=== PATIENT | male | born 1985 | race Caucasian/White ===

== ENCOUNTER 2017-04-14 18:49 | Inpatient (IN) | payer BC, MEDICAID ==
[~2017-04-14] VITALS: Ht 167.6 cm; Wt 83.9 kg
--- NOTE | 2017-04-14 18:51 | NUR ---
Arrived via BLS ambulance with compliant of ETOH withdrawal. Patient to ER bed to [facility] for evaluation. Side rails up. Report given to Ryan ARCHULETA.
[2017-04-14 18:56] VITALS: BP_SYST 180
--- NOTE | 2017-04-14 19:00 | NUR ---
Patient brought to ED via BLS a/o x 4 with c/o of alcohol withdrawal symptoms. Patient reports consuming vodka, unknown amount. History of alcohol abuse. Patient reports difficulty sleeping x 1 day. Denies pain at this time. EMS reports patient presents with elevated HR and BP. Upon assessment. BP 164/102 and HR 117. Denies N/V. Denies fever. Will continue to monitor.
--- NOTE | 2017-04-14 19:05 | NUR ---
Patient denies any thoughts of self harm. Reports not taking medication for anxiety and hypertension.
[2017-04-14] MEDS ORDERED: BANANA BAG 1 EA, MVI 10 ML, THIAMINE HCL 100 MG, FOLIC ACID 1 MG, MAGNESIUM SULFATE 1 G... IV SCH ×5 (19:15)
--- NOTE | 2017-04-14 19:30 | NUR ---
20 gauge angiocath placed to left AC. Use of asceptic technique. Opsite placed over site. Blood return noted. Flushed with 10 cc of normal saline. No evidence of infiltration noted. Patient tolerated well.
[2017-04-14 19:37] LABS: BILIRUBIN,URINE NEGATIVE (NEGATIVE); BLOOD, URINE 2+ (NEGATIVE); CLARITY/URINE CLEAR (CLEAR); COLOR,URINE YELLOW (YELLOW); GLUCOSE,URINE NEGATIVE (NEGATIVE); KETONES,URINE NEGATIVE (NEGATIVE); LEUKOCYTE ESTERASE ,URINE NEGATIVE (NEGATIVE); NITRITE, URINE NEGATIVE (NEGATIVE); PROTEIN URINE TRACE (NEGATIVE); UROBILINOGEN,URINE 0.2 (0.2-1.0)
--- NOTE | 2017-04-14 19:40 | NUR ---
ED MD Osea at bedside for medical evaluation.
[2017-04-14 19:46] LABS: BACTERIA,URINE RARE /HPF (None Seen); RBC,URINE 0-3 /HPF (0-3); WBC,URINE 0-3 /HPF (0-3)
[2017-04-14 19:48] LABS: BARBITURATE, URINE NEGATIVE (NEG <=200); BENZODIAZEPINE, URINE NEGATIVE (NEG <=150); CANNABINOID, URINE NEGATIVE (NEG <=50); COCAINE, URINE NEGATIVE (NEG <=150); METHAMPHETAMINES SCREEN,URINE NEGATIVE (NEG <=500); OPIATE, URINE NEGATIVE (NEG <=100); PHENCYCLIDINE SCREEN,URINE NEGATIVE (NEG <=25); UR TRICYCLIC ANTIDEPRESSANTS NEGATIVE (NEG <=300); URINE AMPHETAMINE NEGATIVE (NEG <=500); URINE METHADONE NEGATIVE (NEG <=200); URINE OXYCODONE SCREEN NEGATIVE (NEG <=100); URINE PROPOXYPHENE SCREEN NEGATIVE (NEG <=300)
[2017-04-14 19:52] LABS: BASOPHILS % (AUTO) 0.4 % (0.0-2.0); EOSINOPHILS % (AUTO) 0.5 % (0.0-4.0); HEMATOCRIT 44.5 % (36-54); HEMOGLOBIN 14.7 g/dL (14.0-18.0); LYMPHOCYTES # (AUTO) 3.1 K/uL (1.0-5.5); LYMPHOCYTES % (AUTO) 45.1 % (20.5-51.5); MEAN CORPUSCULAR HEMOGLOBIN 29 pg (27-31); MEAN CORPUSCULAR HGB CONC 33 % (32-36); MEAN CORPUSCULAR VOLUME 89 fL (79.0-98.0); MONOCYTES # (AUTO) 0.4 K/uL (0.0-1.0); MONOCYTES % (AUTO) 5.7 % (1.7-9.3); NEUTROPHILS # (AUTO) 3.3 K/uL (1.8-7.7); NEUTROPHILS % (AUTO) 48.3 % (40.0-70.0); PLATELET COUNT (AUTO) 257 K/uL (130-430); RED BLOOD CELL COUNT(AUTO) 5.01 MIL/uL (4.2-6.2); RED CELL DISTRIBUTION WIDTH 12.7 % (9.0-15.0); WHITE BLOOD COUNT (AUTO) 6.8 K/uL (4.8-10.8)
[2017-04-14 20:00] LABS: ANION GAP 11 (5-15); CALCIUM 8.2 mg/dL (8.4-11.0); CHLORIDE 103 mmol/L (98-107); CREATININE 0.83 mg/dL (0.55-1.30); GLUCOSE 109 mg/dL (70-99); POTASSIUM 4.3 mmol/L (3.5-5.1); SODIUM SERUM 142 mmol/L (136-145); UREA NITROGEN, BLOOD 13 mg/dL (8-21)
[2017-04-14 20:02] LABS: GFR AFRICAN AMERICAN 139 mL/min (>90); INR 0.9 (0.80-1.20); PROTHROMBIN TIME 10.3 SECS (9.5-12.5)
[2017-04-14] MEDS ORDERED: THIAMINE HCL 100 MG/ML VIAL ONE (20:03)
--- NOTE | 2017-04-14 20:03 | NUR ---
Medicated per MD orders. IVF infusing with no s/s of infiltration at this time. Will continue to monitor.
[2017-04-14 20:04] LABS: ALANINE AMINOTRANSFERASE 111 U/L (12-78); ALBUMIN 4.3 g/dL (3.4-4.8); ASPARTATE AMINOTRANSFERASE 92 U/L (10-37); CREATINE KINASE, TOTAL 300 U/L (39-308); SALICYLATE 2 mg/dL (3-30); TOTAL BILIRUBIN 0.4 mg/dL (0.0-1.0); TOTAL PROTEIN, SERUM 7.9 g/dL (6.4-8.3)
[2017-04-14] MEDS ORDERED: MVI 10 ML VIAL IV ONE (20:05)
[2017-04-14] MEDS ORDERED: FOLIC ACID 5 MG/ML VIAL IV ONE (20:05)
[2017-04-14] MEDS ORDERED: MAGNESIUM SULFATE 1 GM/2 ML VIAL ONE (20:06)
[2017-04-14 20:13] LABS: ACETAMINOPHEN < 1 ug/mL (1-30)
[2017-04-14 20:29] LABS: ALCOHOL, BLOOD 343 mg/dL (<10)
--- NOTE | 2017-04-14 21:04 | NUR ---
Medication reconciliation - patient states "no home meds"
--- NOTE | 2017-04-14 21:25 | NUR ---
Contacted ICU. Spoke with Sonia ARCHULETA. Reports unable to take patient due to inadequate staffing. To call on-call nurse. Will call back for bed availability. Patient requires 1-to-1.
--- NOTE | 2017-04-14 22:00 | NUR ---
Patient resting quietly. No acute distress noted. Vital signs within normal range.
--- NOTE | 2017-04-14 22:00 | NUR ---
RECEIVE PT FROM ER Received Pt from [facility]AL HYGIENIST with a diagnosis of alcohol intoxication. Pt is awake and alert. IV 20g on left ac, no infiltration noted. Pt denies pain. Safety precautions observed, will continue to monitor Pt.
--- NOTE | 2017-04-14 22:55 | NUR ---
ADMISSION Pt admitted from ER via gurney accompanied by ACLS ER staff to room ICU 1. Pt alert/ oriented to self, time and place. Pt emotional and pacing in the room. IV site present left forearm 20ga. Belongings @ bedside. Pt denies intent to harm self. Pt oriented to room and surroundings. To call if he needs assistance.
--- NOTE | 2017-04-14 22:55 | NUR ---
Patient will be admitted to care of Dr. Ryan Admitted to intensive care unit. Will go to bed 1. Belongings list completed. Summary report printed. Report will be given at bedside. Transfer to ICU via ACLS protocol. Licensed nurse present. IV present no signs or symptoms of infiltration.
[2017-04-14 23:00] VITALS: BP_SYST 146
--- NOTE | 2017-04-14 23:10 | NUR ---
15 MINUTE CHECK Pt settled into room, Librium PO and Ativan IV given per MD orders. Pt resting in bed.
[2017-04-14] MEDS ORDERED: ACETAMINOPHEN 325 MG TABLET PO PRN (23:15)
--- NOTE | 2017-04-14 23:25 | NUR ---
PATIENT RESTING: Patient resting quietly. No acute distress noted.
[2017-04-14] MEDS ORDERED: chlordiazePOXIDE HCL 25 MG CAPSULE PO ONE (23:30)
--- NOTE | 2017-04-14 23:40 | NUR ---
PATIENT RESTING: Patient resting quietly. No acute distress noted. Patient is able to reposition self in bed and is encouraged to request assistance when needed.
--- NOTE | 2017-04-14 23:55 | NUR ---
PATIENT RESTING: Patient resting quietly. No acute distress noted.
[2017-04-15] VITALS (20 sets, daily range): BP systolic 129–183
[2017-04-15] MEDS: POTASSIUM CHLORIDE 10 MEQ in D5/0.45 NS 1,000 ML IV SCH ×3 (00:07→21:32)
--- NOTE | 2017-04-15 00:10 | NUR ---
PATIENT RESTING: Patient resting quietly. No acute distress noted.
--- NOTE | 2017-04-15 00:25 | NUR ---
PATIENT RESTING: Patient resting quietly. No acute distress noted.
[2017-04-15] MEDS: LORazepam 2 MG/ML VIAL IVP PRN ×4 (00:28→14:49)
--- NOTE | 2017-04-15 00:40 | NUR ---
PATIENT RESTING: Patient resting quietly. No acute distress noted.
--- NOTE | 2017-04-15 00:55 | NUR ---
PATIENT RESTING: Patient resting quietly. No acute distress noted.
--- NOTE | 2017-04-15 01:10 | NUR ---
PATIENT RESTING: Patient resting quietly. No acute distress noted.
--- NOTE | 2017-04-15 03:17 | NUR ---
FOR CONSULTATION, CALLED [facility] AND SPOKE WITH SOFI.
--- NOTE | 2017-04-15 06:00 | NUR ---
ASSESSMENT Pt alert/oriented to self, time and place. Pt is very cooperative, and interactive with staff. Denies thoughts of self harm. Denies suicide plan.
[2017-04-15 06:43] LABS: BASOPHILS % (AUTO) 0.4 % (0.0-2.0); EOSINOPHILS # (AUTO) 0.1 K/uL (0.0-0.4); EOSINOPHILS % (AUTO) 1.1 % (0.0-4.0); HEMATOCRIT 37.6 % (36-54); LYMPHOCYTES # (AUTO) 4.7 K/uL (1.0-5.5); MEAN CORPUSCULAR HEMOGLOBIN 31 pg (27-31); MEAN CORPUSCULAR HGB CONC 35 % (32-36); MEAN CORPUSCULAR VOLUME 89 fL (79.0-98.0); MONOCYTES # (AUTO) 0.4 K/uL (0.0-1.0); MONOCYTES % (AUTO) 5.7 % (1.7-9.3); NEUTROPHILS # (AUTO) 2.6 K/uL (1.8-7.7); NEUTROPHILS % (AUTO) 32.8 % (40.0-70.0); PLATELET COUNT (AUTO) 193 K/uL (130-430); RED BLOOD CELL COUNT(AUTO) 4.23 MIL/uL (4.2-6.2); WHITE BLOOD COUNT (AUTO) 7.8 K/uL (4.8-10.8)
[2017-04-15 06:59] LABS: ALBUMIN 3.7 g/dL (3.4-4.8); CALCIUM 7.5 mg/dL (8.4-11.0); CREATININE 0.79 mg/dL (0.55-1.30); POTASSIUM 3.3 mmol/L (3.5-5.1); THYROID STIMULATING HORMONE 2.19 uIu/mL (0.34-4.82); TOTAL BILIRUBIN 0.5 mg/dL (0.0-1.0); TOTAL PROTEIN, SERUM 6.9 g/dL (6.4-8.3)
--- NOTE | 2017-04-15 07:30 | NUR ---
ASSUMPTION OF CARE RECEIVED REPORT FROM ELBA ARCHULETA. PT IN BED SLEEPING. VITALS STABLE, O2 SAT 99% ON ROOM AIR, SINUS TACHYCARDIA ON MONITOR. NO SIGNS DISTRESS NOTED. IVF INFUSING THROUGH 20G LEFT FOREARM IV AT 100ML/HR, NO SIGNS INFILTRATION NOTED. BED IN LOWEST POSITION, CALL LIGHT IN REACH. WILL CONTINUE TO MONITOR.
--- NOTE | 2017-04-15 07:45 | NUR ---
OBSERVATION PT RESTING QUIETLY IN BED. VITALS STABLE. NO SIGNS DISTRESS NOTED. PT REPOSITIONS SELF IN BED. PT DENIES PAIN/AGITATION AT THIS TIME. WILL CONTINUE TO MONITOR.
--- NOTE | 2017-04-15 08:00 | NUR ---
HERE DR WHITING HERE TO EVALUATE PT. ORDERS RECEIVED.
--- NOTE | 2017-04-15 08:00 | NUR ---
OBSERVATION PT RESTING QUIETLY IN BED. VITALS STABLE. NO SIGNS DISTRESS NOTED. PT REPOSITIONS SELF IN BED. WILL CONTINUE TO MONITOR.
[2017-04-15] MEDS: chlordiazePOXIDE HCL 25 MG CAPSULE PO SCH ×3 (08:09→21:27)
[2017-04-15] MEDS: FAMOTIDINE 20 MG TABLET PO SCH (08:09)
--- NOTE | 2017-04-15 08:15 | NUR ---
OBSERVATION PT IN BED USING URINAL. VITALS STABLE. NO SIGNS DISTRESS NOTED. PT DENIES PAIN/AGITATION AT THIS TIME. WILL CONTINUE TO MONITOR.
--- NOTE | 2017-04-15 08:30 | NUR ---
OBSERVATION PT RESTING QUIETLY IN BED. VITALS STABLE. NO SIGNS DISTRESS NOTED. PT REPOSITIONS SELF IN BED. WILL CONTINUE TO MONITOR.
--- NOTE | 2017-04-15 08:45 | NUR ---
OBSERVATION PT RESTING QUIETLY IN BED. VITALS STABLE. NO SIGNS DISTRESS NOTED. PT DENIES PAIN/AGITATION AT THIS TIME. WILL CONTINUE TO MONITOR.
[2017-04-15] MEDS ORDERED: BANANA BAG 1 EA, MVI 10 ML, THIAMINE HCL 100 MG, FOLIC ACID 1 MG, MAGNESIUM SULFATE 1 G... IV SCH ×5 (09:00)
--- NOTE | 2017-04-15 09:05 | NUR ---
IV PLACEMENT # 20 gauge angiocath placed to RIGHT WRIST. Use of asceptic technique. Opsite placed over site. Blood return noted. Flushed with 10 cc of normal saline. No evidence of infiltration noted. Patient tolerated WITHOUT DIFFICULTY.
--- NOTE | 2017-04-15 09:15 | NUR ---
OBSERVATION PT RESTING QUIETLY IN BED. VITALS STABLE. NO SIGNS DISTRESS NOTED. WILL CONTINUE TO MONITOR.
[2017-04-15] MEDS: POTASSIUM CHLORIDE 10 MEQ TAB.PRT.SR PO SCH ×2 (09:41→14:42)
--- NOTE | 2017-04-15 09:45 | NUR ---
OBSERVATION PT RESTING QUIETLY IN BED. VITALS STABLE. NO SIGNS DISTRESS NOTED. PT REPOSITIONS SELF IN BED. PT DENIES PAIN/AGITATION AT THIS TIME. PT ASKS FOR ANOTHER BLANKET. WILL CONTINUE TO MONITOR.
--- NOTE | 2017-04-15 10:00 | NUR ---
OBSERVATION PT RESTING IN BED. VITALS STABLE. PT VERBALIZES FEELING ANXIOUS, WILL MEDICATE WITH PRESCRIBED ATIVAN. WILL CONTINUE TO MONITOR.
--- NOTE | 2017-04-15 10:07 | NUR ---
HERE DR BLANCO HERE TO EVALUATE PT. NO NEW ORDERS RECEIVED AT THIS TIME.
--- NOTE | 2017-04-15 10:15 | NUR ---
OBSERVATION PT RESTING QUIETLY IN BED. VITALS STABLE. PT GIVEN 1MG ATIVAN IVP FOR AGITATION. WILL CONTINUE TO MONITOR FOR RESPONSE TO MEDICATION.
--- NOTE | 2017-04-15 10:30 | NUR ---
OBSERVATION PT RESTING QUIETLY IN BED. VITALS STABLE. NO SIGNS DISTRESS NOTED. PT REPOSITIONS SELF IN BED. WILL CONTINUE TO MONITOR.
--- NOTE | 2017-04-15 10:45 | NUR ---
OBSERVATION PT RESTING QUIETLY IN BED. VITALS STABLE. NO SIGNS DISTRESS NOTED. PT REPOSITIONS SELF IN BED. PT SAYS HE IS STARTING TO FEEL LESS ANXIOUS. WILL CONTINUE TO MONITOR.
--- NOTE | 2017-04-15 11:00 | NUR ---
OBSERVATION PT ASLEEP IN BED. VITALS STABLE. NO SIGNS DISTRESS NOTED. WILL CONTINUE TO MONITOR.
--- NOTE | 2017-04-15 11:15 | NUR ---
OBSERVATION PT ASLEEP IN BED. VITALS STABLE. NO SIGNS DISTRESS NOTED. WILL CONTINUE TO MONITOR.
--- NOTE | 2017-04-15 11:30 | NUR ---
OBSERVATION PT ASLEEP IN BED. VITALS STABLE. NO SIGNS DISTRESS NOTED. WILL CONTINUE TO MONITOR.
--- NOTE | 2017-04-15 11:45 | NUR ---
OBSERVATION PT RESTING QUIETLY IN BED. VITALS STABLE. NO SIGNS DISTRESS NOTED. PT DENIES PAIN/AGITATION AT THIS TIME. WILL CONTINUE TO MONITOR.
--- NOTE | 2017-04-15 12:00 | NUR ---
OBSERVATION PT RESTING QUIETLY IN BED. VITALS STABLE. NO SIGNS DISTRESS NOTED. PT DENIES PAIN/AGITATION AT THIS TIME. WILL CONTINUE TO MONITOR.
--- NOTE | 2017-04-15 12:15 | NUR ---
OBSERVATION PT RESTING QUIETLY IN BED. VITALS STABLE. NO SIGNS DISTRESS NOTED. PT'S LUNCH TRAY TAKEN TO HIM. PT DENIES PAIN/AGITATION AT THIS TIME. WILL CONTINUE TO MONITOR.
--- NOTE | 2017-04-15 12:30 | NUR ---
OBSERVATION PT ASLEEP IN BED, SNORING. VITALS STABLE. NO SIGNS DISTRESS NOTED. EASILY AROUSABLE. WILL CONTINUE TO MONITOR.
--- NOTE | 2017-04-15 12:45 | NUR ---
OBSERVATION PT ASLEEP IN BED, SNORING. VITALS STABLE. NO SIGNS DISTRESS NOTED. EASILY AROUSABLE. WILL CONTINUE TO MONITOR.
--- NOTE | 2017-04-15 13:00 | NUR ---
OBSERVATION PT ASLEEP IN BED, SNORING. VITALS STABLE. NO SIGNS DISTRESS NOTED. EASILY AROUSABLE. WILL CONTINUE TO MONITOR.
--- NOTE | 2017-04-15 13:15 | NUR ---
OBSERVATION PT ASLEEP IN BED, SNORING. VITALS STABLE. NO SIGNS DISTRESS NOTED. EASILY AROUSABLE. WILL CONTINUE TO MONITOR.
--- NOTE | 2017-04-15 13:30 | NUR ---
OBSERVATION PT ASLEEP IN BED, SNORING. EASILY AROUSABLE. VITALS STABLE. NO SIGNS DISTRESS NOTED. WILL CONTINUE TO MONITOR.
--- NOTE | 2017-04-15 13:45 | NUR ---
OBSERVATION PT RESTING QUIETLY IN BED. VITALS STABLE. NO SIGNS DISTRESS NOTED. PT DENIES PAIN/AGITATION AT THIS TIME. WILL CONTINUE TO MONITOR.
--- NOTE | 2017-04-15 14:00 | NUR ---
OBSERVATION PT RESTING QUIETLY IN BED. VITALS STABLE. NO SIGNS DISTRESS NOTED. PT DENIES PAIN/AGITATION AT THIS TIME. WILL CONTINUE TO MONITOR.
--- NOTE | 2017-04-15 14:15 | NUR ---
OBSERVATION PT IN BED USING URINAL. VITALS STABLE. NO SIGNS DISTRESS NOTED. PT DENIES PAIN/AGITATION AT THIS TIME. WILL CONTINUE TO MONITOR.
--- NOTE | 2017-04-15 14:28 | NUR ---
Social Service Note: Pt referred to community mental health social worker by nursing for suicide risk. LEADERSHIP PROGRAM ASSOCIATE met with pt at bedside; pt states that he called 911 because he had been on a binge for 8 days drinking and knew he needed to stop. Pt states that he has no suicidal ideations; pt states that he has never attempted suicide. Pt states that he has anxiety and depression but is not currently taking any medications; pt states that he has not found something that works well. Pt states that he is not being followed by a psychiatrist. Pt states that he used to see a therapist but is not currently going to appointments. Pt states that he wants to start going to therapy again. Pt states that he has been to rehab treatment for his alcohol use several times; pt states that most recent pt was at [facility] about 6 months ago; pt states that he was sober for about 3 months and then felt like he could have a few drinks and started drinking again. Pt states that he has been to AA meetings in the past. LEADERSHIP PROGRAM ASSOCIATE spoke with pt about outpatient mental health resources and substance abuse treatment resources; [facility] has provided pt with copies of both. LEADERSHIP PROGRAM ASSOCIATE encouraged pt to review resources and reach out to LEADERSHIP PROGRAM ASSOCIATE if pt has questions. LEADERSHIP PROGRAM ASSOCIATE will remain available for support and will follow up as needed.
--- NOTE | 2017-04-15 14:30 | NUR ---
OBSERVATION PT RESTING QUIETLY IN BED. VITALS STABLE. NO SIGNS DISTRESS NOTED. PT SAYS HE IS FEELING SLIGHTLY ANXIOUS. WILL CONTINUE TO MONITOR.
--- NOTE | 2017-04-15 14:45 | NUR ---
OBSERVATION PT RESTING QUIETLY IN BED. VITALS STABLE. NO SIGNS DISTRESS NOTED. PT SAYS HE IS FEELING ANXIOUS AND WOULD LIKE ATIVAN, WILL GIVE PT PRESCRIBED ATIVAN. WILL CONTINUE TO MONITOR.
--- NOTE | 2017-04-15 15:00 | NUR ---
OBSERVATION PT RESTING QUIETLY IN BED. VITALS STABLE. NO SIGNS DISTRESS NOTED. PT GIVEN 1MG ATIVAN IVP PER ORDERS FOR AGITATION. WILL CONTINUE TO MONITOR.
--- NOTE | 2017-04-15 15:15 | NUR ---
OBSERVATION PT RESTING QUIETLY IN BED. VITALS STABLE. NO SIGNS DISTRESS NOTED. PT SAYS HE IS STILL FEELING SLIGHTLY AGITATED, PT ENCOURAGED TO TRY BEST TO RELAX AND THAT THE MEDICATION SHOULD HELP DECREASE ANXIETY SOON. WILL CONTINUE TO MONITOR.
--- NOTE | 2017-04-15 15:30 | NUR ---
OBSERVATION PT RESTING QUIETLY IN BED. VITALS STABLE. NO SIGNS DISTRESS NOTED. PT SAYS HE FEELS A LOT LESS AGITATION AND IS BETTER ABLE TO RELAX NOW. WILL CONTINUE TO MONITOR.
--- NOTE | 2017-04-15 15:40 | NUR ---
CALL TO MD SPOKE TO DR WHITING ON PHONE REGARDING PT NOT WANTING TO BE DISCHARGED TO [facility]. ORDERS TO DISCHARGE TO TELE TODAY RECEIVED.
--- NOTE | 2017-04-15 15:45 | NUR ---
OBSERVATION PT RESTING QUIETLY IN BED. VITALS STABLE. NO SIGNS DISTRESS NOTED. PT DENIES PAIN, SAYS ANXIETY IS GOING AWAY. WILL CONTINUE TO MONITOR.
--- NOTE | 2017-04-15 16:00 | NUR ---
OBSERVATION PT RESTING QUIETLY IN BED. VITALS STABLE. NO SIGNS DISTRESS NOTED. PT DENIES PAIN/AGITATION AT THIS TIME. WILL CONTINUE TO MONITOR.
--- NOTE | 2017-04-15 16:15 | NUR ---
OBSERVATION PT RESTING QUIETLY IN BED. VITALS STABLE. NO SIGNS DISTRESS NOTED. PT DENIES PAIN/AGITATION AT THIS TIME. WILL CONTINUE TO MONITOR.
--- NOTE | 2017-04-15 16:22 | NUR ---
PAGE FOR CALLED, SPOKE TO [place] DIALED [phone].
--- NOTE | 2017-04-15 16:30 | NUR ---
OBSERVATION PT RESTING QUIETLY IN BED. VITALS STABLE. NO SIGNS DISTRESS NOTED. PT DENIES PAIN/AGITATION AT THIS TIME. WILL CONTINUE TO MONITOR.
--- NOTE | 2017-04-15 16:45 | NUR ---
OBSERVATION PT SITTING UP IN BED WATCHING TV. VITALS STABLE, NO SIGNS DISTRESS NOTED. PT DENIES PAIN AND AGITATION AT THIS TIME. WILL CONTINUE TO MONITOR.
--- NOTE | 2017-04-15 16:53 | NUR ---
PAGE FOR DR.CHARI TREVIZO. SPOKE TO [place], DIALED [phone].
--- NOTE | 2017-04-15 17:00 | NUR ---
OBSERVATION PT SITTING UP IN BED WATCHING TV. VITALS STABLE, NO SIGNS DISTRESS NOTED. PT DENIES PAIN AND AGITATION AT THIS TIME. WILL CONTINUE TO MONITOR.
--- NOTE | 2017-04-15 17:15 | NUR ---
OBSERVATION PT SITTING UP IN BED WATCHING TV. VITALS STABLE, NO SIGNS DISTRESS NOTED. PT DENIES PAIN AND AGITATION. WILL CONTINUE TO MONITOR.
--- NOTE | 2017-04-15 17:24 | NUR ---
PAGE FOR DR. HENOK TREVIZO. SPOKE TO [place], DIALED [phone].
[2017-04-15] MEDS ORDERED: cloNIDine HCL 0.1 MG TABLET PO PRN (17:30)
--- NOTE | 2017-04-15 17:45 | NUR ---
TRANSFER PT TRANSFERRED TO TELE 110A IN WHEELCHAIR, ACLS PROTOCOL. PT PLACED ON PORTABLE MONITOR, VITALS STABLE. PT BELONGINGS TAKEN TO ROOM. REPORT GIVEN TO ONOFRE ARCHULETA USING SBAR APPROACH.
--- NOTE | 2017-04-15 17:50 | NUR ---
PATIENT RECEIVED AWAKE, ALERT AND ORIENTED X4, PATIENT COMPLAINING OF HEADACHE WITH MILD PAIN, BLOOD PRESSURE SLIGHTLY ELEVATED WILL FOLLOW UP WITH MEDICATION ONCE VERIFIED FROM PHARMACY, EDUCATED THE PATIENT ON UNITE, WHITEBOARD, AND CALL LIGHT SYSTEM AND TO CALL FOR ANY ASSISTANCE, PATIENT VERBALIZED UNDERSTANDING, BED IN LOWEST POSITION, TWO SIDE RAILS UP, CALL LIGHT WITHIN REACH, WILL CONTINUE TO MONITOR.
--- NOTE | 2017-04-15 18:20 | NUR ---
CLONIDINE CALLED PHARMACY TO VERIFY CLONIDINE. STATED THEY WOULD VERIFY MED PHILOMENA
--- NOTE | 2017-04-15 18:31 | NUR ---
CLOSING NOTE PATIENT MEDICATED WITH CLONIDINE FOR BP AND TYLENOL FOR HEADACHE. TOLERATING DINNER WELL. BANANA BAG INFUSING WITHOUT ANY COMPLICATIONS. WILL ENDORSE REPORT TO [facility] SHIFT NURSE. CALL LIGHT WITHIN REACH, BED IN LOW POSITION AND SIDE RAILS UP X2. PT INSTRUCTED TO CALL FOR ASSISTANCE.
--- NOTE | 2017-04-15 19:25 | NUR ---
INITIAL NOTES: PT HAVE NO DISTRESS AND DISCOMFORT ,AWAKE AND ALERT ,AMBULATED TO RESTROOM BY HIMSELF .DID NOT COMPLAIN ABOUT PAIN . CALL LIGHT WITHIN REACH.
[2017-04-15] MEDS ORDERED: COMMUNICATION ORDER XX ONE (22:00)
--- NOTE | 2017-04-15 22:02 | NUR ---
INITIAL NOTES PT HAVE NO DISTRESS AND DISCOMFORT ,AWAKE AND ALERT ,AMBULATED TO RESTROOM BY HIMSELF .DID NOT COMPLAIN ABOUT PAIN . CALL LIGHT WITHIN REACH, BED IN LOW POSITION . PT INSTRUCTED TO CALL FOR ASSISTANCE. Addendum: 04/15/17 at 2207 by Deborah Richardson RN RN NOTES PT WANT TO SMOKE .RN REQUEST THE NICOTINE PACH STAT. CALL LIGHT WITHIN REACH, BED IN LOW POSITION . PT INSTRUCTED TO CALL FOR ASSISTANCE.
--- NOTE | 2017-04-15 23:13 | NUR ---
RN NOTES: Pt resting quietly in the bed. V/S are stable. No signs distress noted .
[2017-04-16 00:35] VITALS: BP_SYST 128
[2017-04-16] MEDS: LORazepam 2 MG/ML VIAL IVP PRN ×2 (01:14→05:40)
--- NOTE | 2017-04-16 01:19 | NUR ---
GEREMIAS NOTES: Pt feel anxiety and anxious. willing to go home . Notify pt willing to against the medical order . talk to the patient, pt finially stay . antivan is given . Addendum: 04/16/17 at 0406 by Deborah Richardson RN Notified the mother that pt wants to go home against medical advice.
--- NOTE | 2017-04-16 01:23 | NUR ---
RN Notes: Pt gets restless and pacing back and forth in the room, pulled out his IV, wanted to go home and smoke. Called his mother Joy and talked to the pt, and pt agreed to stay for tonight. Started new IV line rt forearm g 20 and resumed current IVF. Medicated with Ativan 1mg IVP PRN as ordered. Instructed pt to relax and watched TV it might help him to relax. Instructed pt to call for any assistance or discomfort. Call light within easy reach. Continue monitor and assess.
--- NOTE | 2017-04-16 03:00 | NUR ---
RN Notes: Pt still anxious, walked pt around the hallway with steady gait, back in the room without any distress. Instructed to call for assistance or discomfort, verbalizes understanding well. Call light within easy reach.
[2017-04-16 04:24] VITALS: BP_SYST 158
--- NOTE | 2017-04-16 04:26 | NUR ---
RN NOTES: PT IS AWAKE AND ALERT . CAN'T GO TO SLEEP .
[2017-04-16 07:22] LABS: BASOPHILS % (AUTO) 0.2 % (0.0-2.0); EOSINOPHILS # (AUTO) 0.2 K/uL (0.0-0.4); EOSINOPHILS % (AUTO) 1.8 % (0.0-4.0); HEMATOCRIT 41.2 % (36-54); HEMOGLOBIN 13.9 g/dL (14.0-18.0); LYMPHOCYTES # (AUTO) 2.4 K/uL (1.0-5.5); LYMPHOCYTES % (AUTO) 22.2 % (20.5-51.5); MEAN CORPUSCULAR HEMOGLOBIN 30 pg (27-31); MEAN CORPUSCULAR HGB CONC 34 % (32-36); MEAN CORPUSCULAR VOLUME 90 fL (79.0-98.0); MONOCYTES # (AUTO) 0.5 K/uL (0.0-1.0); MONOCYTES % (AUTO) 5.1 % (1.7-9.3); NEUTROPHILS # (AUTO) 7.6 K/uL (1.8-7.7); NEUTROPHILS % (AUTO) 70.7 % (40.0-70.0); PLATELET COUNT (AUTO) 202 K/uL (130-430); RED BLOOD CELL COUNT(AUTO) 4.59 MIL/uL (4.2-6.2); RED CELL DISTRIBUTION WIDTH 12.5 % (9.0-15.0); WHITE BLOOD COUNT (AUTO) 10.7 K/uL (4.8-10.8)
--- NOTE | 2017-04-16 07:23 | NUR ---
CLOSING NOTES: PT AWAKE AND ALERT ,WALKING AROUND ,WITH NO DISTRESS AND ANXIOUS. PT STABLE NEEDS MET.CONTINUE MONITOR ,ENDORSE TO MORNING SHIFT .
[2017-04-16 07:45] LABS: BILIRUBIN,DIRECT 0.3 mg/dL (0.0-0.3); CALCIUM 8.4 mg/dL (8.4-11.0); CREATININE 0.85 mg/dL (0.55-1.30); POTASSIUM 3.5 mmol/L (3.5-5.1); TOTAL BILIRUBIN 1.2 mg/dL (0.0-1.0); TOTAL PROTEIN, SERUM 7.5 g/dL (6.4-8.3)
[2017-04-16 08:00] VITALS: BP_SYST 143
--- NOTE | 2017-04-16 08:00 | NUR ---
NOTE PT WALKING UP AND DOWN THE HALLWAY AND IN ROOM. IV IN LEFT FOREARM INTACT AND PATENT. IVF'S WERE RECONNECTED AT THIS TIME. PT SAT IN BS CHAIR NEAR THE WINDOW AND ATE HIS BREAKFAST. NO SOB/RESP DISTRESS OR PAIN/DISCOMFORT OR ANXIETY/IRRITABILITY NOTED AT THIS TIME. PT STATES HE WANTS TO LEAVE THE HOSPITAL SO HE CAN SMOKE. PT WAS REASSURED AND TOLD TO WAIT FOR THE MD ROUNDS SO HE COULD DISCUSS HIS CONCERNS AND WANTING TO LEAVE THE HOSPITAL. PT STATED "OKAY".
[2017-04-16] MEDS: chlordiazePOXIDE HCL 25 MG CAPSULE PO SCH (08:33)
[2017-04-16] MEDS: FAMOTIDINE 20 MG TABLET PO SCH (08:33)
[2017-04-16] MEDS: POTASSIUM CHLORIDE 10 MEQ in D5/0.45 NS 1,000 ML IV SCH (08:34)
--- NOTE | 2017-04-16 09:10 | NUR ---
NOTE RN WENT TO PT'S ROOM TO GIVE AM MEDICATIONS, PT NOT IN ROOM. PT'S TELE UNIT WAS ON THE BEDSIDE TABLE, IVF'S WERE STOPPED AND IV TUBING WAS CUT. PT'S CLOTHES WERE GONE FROM THE ROOM. PT WAS NO WHERE ON THE FLOOR. SECURITY WAS NOTIFIED AND RN WENT TO THE FRONT OF THE HOSPITAL AND AROUND THE BUILDING TO CHECK FOR PT. NO SIGHT OF PT TO BE FOUND. DIRECTOR NICU LORA O. AWARE OF THIS MISSING PT SINCE 0910AM. SECURITY CHECKED AND NO PT WAS FOUND. DIRECTOR NICU CALLED [employer] TO NOTIFY THEM OF MISSING PT.
[2017-04-16] MEDS ORDERED: NICOTINE 14 MG/24 HR PATCH.TD24 TD ONE (11:00)
[2017-04-17] MEDS ORDERED: NICOTINE 14 MG/24 HR PATCH.TD24 TD SCH (09:00)
== END 2017-04-16 09:00 | disposition left against medical advice (07) | DRG 894 ==
LOC: SED 18:49 → SIC 21:31 → STU 04-15 17:40
PROVIDERS: ADMIT Internal Medicine; ATTEND Internal Medicine
DX: F10.229 Alcohol dependence with intoxication, unspecified (principal); R45.851 Suicidal ideations; R00.0 Tachycardia, unspecified; Y90.8 Blood alcohol level of 240 mg/100 ml or more; I10 Essential (primary) hypertension; F32.9 Major depressive disorder, single episode, unspecified; E87.6 Hypokalemia
CPT/HCPCS: 36415; 80048; 80053; 80076; 80307; 81000-TC; 82550-TC; 83735-TC; 84443-TC; 84484; 85025; 85610-TC; 85730-TC; 87081; 93005; 96365; 99285; G0480; G0481; G0482; J2060; J3411; J3475; J3480; J3490; J7030

== ENCOUNTER 2019-02-07 09:38 | Inpatient (IN) | payer BC, MEDICAID ==
[~2019-02-07] VITALS: Ht 165.1 cm; Wt 87.1 kg
[2019-02-07 09:40] VITALS: BP_SYST 165
[2019-02-07] MEDS ORDERED: FOLIC ACID 1 MG, THIAMINE HCL 100 MG, MAGNESIUM SULFATE 1 GM, MVI 10 ML in NACL 0.9% 1,... IV ONE (10:15)
[2019-02-07] MEDS ORDERED: LORazepam 2 MG/ML VIAL (FOR ER USE) IVP ONE (10:15)
[2019-02-07 10:52] LABS: BASOPHILS # (AUTO) 0.1 K/uL (0.0-0.2); BASOPHILS % (AUTO) 0.7 % (0.0-2.0); HEMATOCRIT 44.8 % (36-54); HEMOGLOBIN 15.3 g/dL (14.0-18.0); LYMPHOCYTES # (AUTO) 2.3 K/uL (1.0-5.5); LYMPHOCYTES % (AUTO) 13.4 % (20.5-51.5); MEAN CORPUSCULAR HEMOGLOBIN 30 pg (27-31); MEAN CORPUSCULAR HGB CONC 34 % (32-36); MEAN CORPUSCULAR VOLUME 88 fL (79.0-98.0); MONOCYTES # (AUTO) 1.1 K/uL (0.0-1.0); MONOCYTES % (AUTO) 6.3 % (1.7-9.3); NEUTROPHILS # (AUTO) 13.9 K/uL (1.8-7.7); NEUTROPHILS % (AUTO) 79.6 % (40.0-70.0); PLATELET COUNT (AUTO) 347 K/uL (130-430); RED BLOOD CELL COUNT(AUTO) 5.07 MIL/uL (4.2-6.2); RED CELL DISTRIBUTION WIDTH 13.9 % (9.0-15.0); WHITE BLOOD COUNT (AUTO) 17.4 K/uL (4.8-10.8)
[2019-02-07] MEDS ORDERED: chlordiazePOXIDE HCL 25 MG CAPSULE PO ONE (11:00)
[2019-02-07] MEDS ORDERED: cloNIDine HCL 0.2 MG TABLET PO ONE (11:00)
[2019-02-07] MEDS ORDERED: LORazepam 2 MG/ML VIAL IVP PRN (11:00)
[2019-02-07 11:02] LABS: ANION GAP 15 (5-15); CALCIUM 9.2 mg/dL (8.4-11.0); CHLORIDE 93 mmol/L (98-107); CREATININE 1.04 mg/dL (0.55-1.30); GLUCOSE 113 mg/dL (70-99); POTASSIUM 3.4 mmol/L (3.5-5.1); SODIUM SERUM 134 mmol/L (136-145); UREA NITROGEN, BLOOD 8 mg/dL (8-21)
[2019-02-07 11:09] LABS: GFR AFRICAN AMERICAN 106 mL/min (>90)
[2019-02-07 11:11] LABS: ALANINE AMINOTRANSFERASE 162 U/L (12-78); ALBUMIN 3.8 g/dL (3.4-4.8); ASPARTATE AMINOTRANSFERASE 116 U/L (10-37); LIPASE 116 U/L (73-393); TOTAL BILIRUBIN 0.8 mg/dL (0.0-1.0)
[2019-02-07 11:15] LABS: ALCOHOL, BLOOD < 3 mg/dL (<10)
[2019-02-07 12:11] VITALS: BP_SYST 141
[2019-02-07 12:48] LABS: BILIRUBIN,URINE NEGATIVE (NEGATIVE); BLOOD, URINE 1+ (NEGATIVE); CLARITY/URINE CLEAR (CLEAR); COLOR,URINE YELLOW (YELLOW); GLUCOSE,URINE NEGATIVE (NEGATIVE); KETONES,URINE NEGATIVE (NEGATIVE); LEUKOCYTE ESTERASE ,URINE NEGATIVE (NEGATIVE); NITRITE, URINE NEGATIVE (NEGATIVE); PH,URINE 6.5 (5.0-8.0); PROTEIN URINE NEGATIVE (NEGATIVE); UROBILINOGEN,URINE 0.2 (0.2-1.0)
[2019-02-07 13:11] LABS: BARBITURATE, URINE NEGATIVE (NEG <=200); BENZODIAZEPINE, URINE NEGATIVE (NEG <=150); CANNABINOID, URINE NEGATIVE (NEG <=50); COCAINE, URINE NEGATIVE (NEG <=150); METHAMPHETAMINES SCREEN,URINE NEGATIVE (NEG <=500); OPIATE, URINE NEGATIVE (NEG <=100); PHENCYCLIDINE SCREEN,URINE NEGATIVE (NEG <=25); UR TRICYCLIC ANTIDEPRESSANTS NEGATIVE (NEG <=300); URINE AMPHETAMINE NEGATIVE (NEG <=500); URINE METHADONE NEGATIVE (NEG <=200); URINE OXYCODONE SCREEN NEGATIVE (NEG <=100); URINE PROPOXYPHENE SCREEN NEGATIVE (NEG <=300)
[2019-02-07 13:18] LABS: BACTERIA,URINE RARE /HPF (None Seen); MUCUS,URINE 1+ /LPF (None Seen); RBC,URINE 0-3 /HPF (0-3); WBC,URINE 0-3 /HPF (0-3)
[2019-02-07] MEDS ORDERED: POTASSIUM CHLORIDE 20 MEQ TAB.PRT.SR PO ONE (14:45)
[2019-02-07] MEDS ORDERED: FAMOTIDINE PF 20 MG/2 ML VIAL IVP ONE (15:00)
[2019-02-07 15:52] VITALS: BP_SYST 135
[2019-02-07] MEDS: cloNIDine HCL 0.2 MG TABLET PO SCH ×2 (16:37→20:31)
[2019-02-07] MEDS: chlordiazePOXIDE HCL 25 MG CAPSULE PO SCH ×2 (16:38→20:32)
[2019-02-07] MEDS ORDERED: ACETAMINOPHEN 650 MG SUPP.RECT RC PRN (17:45)
[2019-02-07] MEDS ORDERED: ACETAMINOPHEN 325 MG TABLET PO PRN (18:30)
[2019-02-07 20:00] VITALS: BP_SYST 125
[2019-02-07] MEDS: FAMOTIDINE PF 20 MG/2 ML VIAL IVP SCH (20:32)
[2019-02-08 00:59] VITALS: BP_SYST 130
[2019-02-08 06:19] LABS: BASOPHILS % (AUTO) 0.3 % (0.0-2.0); EOSINOPHILS # (AUTO) 0.2 K/uL (0.0-0.4); EOSINOPHILS % (AUTO) 1.9 % (0.0-4.0); HEMATOCRIT 40.9 % (36-54); HEMOGLOBIN 13.9 g/dL (14.0-18.0); LYMPHOCYTES # (AUTO) 3.7 K/uL (1.0-5.5); LYMPHOCYTES % (AUTO) 36.6 % (20.5-51.5); MEAN CORPUSCULAR HEMOGLOBIN 31 pg (27-31); MEAN CORPUSCULAR HGB CONC 34 % (32-36); MEAN CORPUSCULAR VOLUME 90 fL (79.0-98.0); MONOCYTES # (AUTO) 0.5 K/uL (0.0-1.0); MONOCYTES % (AUTO) 4.6 % (1.7-9.3); NEUTROPHILS # (AUTO) 5.8 K/uL (1.8-7.7); NEUTROPHILS % (AUTO) 56.6 % (40.0-70.0); PLATELET COUNT (AUTO) 238 K/uL (130-430); RED BLOOD CELL COUNT(AUTO) 4.53 MIL/uL (4.2-6.2); WHITE BLOOD COUNT (AUTO) 10.2 K/uL (4.8-10.8)
[2019-02-08 08:20] LABS: CREATININE 0.88 mg/dL (0.55-1.30); POTASSIUM 4.1 mmol/L (3.5-5.1)
[2019-02-08 08:25] LABS: ALBUMIN 3.1 g/dL (3.4-4.8)
[2019-02-08] MEDS: cloNIDine HCL 0.2 MG TABLET PO SCH ×3 (09:03→16:35)
[2019-02-08] MEDS: FAMOTIDINE PF 20 MG/2 ML VIAL IVP SCH (09:04)
[2019-02-08] MEDS: chlordiazePOXIDE HCL 25 MG CAPSULE PO SCH ×3 (09:07→16:34)
[2019-02-08 11:31] VITALS: BP_SYST 120
[2019-02-08] MEDS ORDERED: FOLIC ACID 1 MG, THIAMINE HCL 100 MG, MAGNESIUM SULFATE 1 GM, MVI 10 ML in NACL 0.9% 1,... IV SCH (14:00)
[2019-02-08 16:02] VITALS: BP_SYST 121
== END 2019-02-08 20:20 | disposition left against medical advice (07) | DRG 280 ==
LOC: SED 09:38 → STU 10:59 → SMU 02-08 13:33
PROVIDERS: ADMIT Internal Medicine; ATTEND Internal Medicine
DX: K70.10 Alcoholic hepatitis without ascites (principal); F10.231 Alcohol dependence with withdrawal delirium; R65.10 Systemic inflammatory response syndrome (SIRS) of non-infectious origin without acute organ dysfunction; E87.1 Hypo-osmolality and hyponatremia; I10 Essential (primary) hypertension; E87.6 Hypokalemia; F32.9 Major depressive disorder, single episode, unspecified; Z53.21 Procedure and treatment not carried out due to patient leaving prior to being seen by health care provider
CPT/HCPCS: 36415; 71045; 80053; 80307; 81000-TC; 83605; 83690-TC; 83880; 84484; 85025; 87040-TC; 93005; 96374; 99285; G0378; G0482; J2060; J3411; J3475; J3490; J7030